=== PATIENT | male | born 1975 | race Caucasian/White ===

== ENCOUNTER 2017-06-26 10:01 | Emergency (ER) | payer OTHER ==
[2017-06-26] MEDS ORDERED: Ondansetron INJ* 2 MG/ML VIAL IV ONE (10:48)
[2017-06-26] MEDS ORDERED: NS 0.9% 1000 ML* 1,000 ML IV ONE (10:48)
[2017-06-26 11:34] LABS: Hematocrit 41 % (42-52); Hemoglobin 13.8 g/dl (14.0-18.0); Mean Corpuscular HGB Conc 34 g/dl (31-36); Mean Corpuscular Hemoglobin 31 pg (27-31); Mean Corpuscular Volume 91 fL (80-94); Mean Platelet Volume 7 um3 (7.4-10.4); Red Blood Count 4.45 10^6/ul (4.0-5.4); Red Cell Distribution Width 12 % (10.5-15); White Blood Count 9.2 10^3/ul (3.5-10.8)
[2017-06-26 11:36] LABS: Urine Bilirubin Negative (Negative); Urine Glucose Negative (Negative); Urine Nitrite Negative (Negative)
--- NOTE | 2017-06-26 11:41 | RAD ---
Indication: Scrotal pain. Real-time sonography of the scrotum was performed. The right testis measures 5.5 x 2.8 x 3.1 cm. No intratesticular masses are noted. Increased flow is noted in the right testis. Epididymis measures 10 x 11 mm. No hydrocele is noted. The left testis measures 4.8 x 2.8 x 3.0 cm. No intratesticular masses are noted. Hypervascular left testes is noted. The epididymis measures 12 x 18 mm. Small left hydrocele is noted. IMPRESSION: Heterogeneous testicles bilaterally. Increased flow in both testis consistent with bilateral orchitis and epididymitis.
[2017-06-26 11:50] LABS: ALT 13 U/L (7-52); AST 20 U/L (13-39); Albumin 4.4 g/dL (3.2-5.2); Alkaline Phosphatase 52 U/L (34-104); Anion Gap 4 mmol/L (2-11); BUN/Creatinine Ratio 11.2 (8-20); Blood Urea Nitrogen 12 mg/dL (6-24); CO2 Carbon Dioxide 30 mmol/L (22-32); Calcium 9.6 mg/dL (8.6-10.3); Chloride 99 mmol/L (101-111); Creatine Kinase 93 U/L (10-223); EGFR African American 97.9 (>60); EGFR Non-African American 76.2 (>60); Globulin 2.9 g/dL (2-4); Glucose 85 mg/dL (70-100); Lipase < 10 U/L (11.0-82.0); Potassium 3.9 mmol/L (3.5-5.0); Sodium 133 mmol/L (133-145); Total Protein 7.3 g/dL (6.4-8.9)
--- NOTE | 2017-06-26 12:21 | RAD ---
Indication: Fever and cough. 2 views of the chest are reviewed and compared to previous exam dated August 26, 2016. No mediastinal shift is noted. Heart is of normal size and configuration. Previous identified air space disease is no longer present. Lung mason are clear. IMPRESSION: No active cardiopulmonary disease is noted.
--- NOTE | 2017-06-26 12:51 | ED ---
HPI Febrile Illness - HPI Summary HPI Summary: Patient is an otherwise healthy 42yo M with a CC of left testicular pain, fevers , nausea and fatigue x 3 days. Denies urinary symptoms. He notes to 3 days ago starting with feelings of malaise, when he noticed his left testicle was swollen and red and tender to touch and radiates into the ipsilarteral side into the LLQ with mild nausea. This pain has been constant, aching, 5/10 and worse with movement/walking. Temp at home x 3 days has been fluctuating between 99-101. He notes to some sweats, but denies chills. Denies other abdominal pain, vomiting, constipation or diarrhea. Denies STI's or chance of such as he is in a monogamous relationship. Denies any urinary symptoms including obstructive symptoms, back pain or discoloration of urine. Denies chest pain, SOB, or neck pain. He states he has tenderness "all over" and his joints ache. He denies any recent tick bites or rashes. He is taking PO well. He denies medications and is allergic to penicillin. - History of Current Complaint Chief Complaint: EDGeneral Time Seen by Provider: 06/26/17 10:29 Hx Obtained From: Patient Onset/Duration: Started Days Ago Timing: Constant Temperature: 100.3 F Initial Severity: Moderate Current Severity: Moderate Pain Intensity: 6 Pain Scale Used: 0-10 Numeric Aggravating Factors: Nothing Alleviating Factors: Nothing Associated Signs and Symptoms: Diaphoresis, Joint Pain, Myalgia, Nausea - Risk Factors Pseudomonas Risk Factors: Negative Serious Bacterial Infection Risk Factors: Negative - Additional Pertinent History Primary Care Physician: [id number] - Allergy/Home Medications Allergies/Adverse Reactions: Allergies Allergy/AdvReac Type Severity Reaction Status Date / Time Penicillin G Allergy Itching Verified 06/26/17 10:26 PMH/Surg Hx/FS Hx/Imm Hx Previously Healthy: Yes Endocrine/Hematology History: Denies: Hx Diabetes, Hx Thyroid Disease Cardiovascular History: Denies: Hx Congestive Heart Failure, Hx Hypertension, Hx Pacemaker/ICD Respiratory History: Reports: Hx Asthma - A CHILD Denies: Hx Chronic Obstructive Pulmonary Disease (COPD) GI History: Denies: Hx Ulcer History: Denies: Hx Renal Disease Sensory History: Denies: Hx Hearing Aid Psychiatric History: Denies: Hx Panic Disorder - Immunization History Date of Tetanus Vaccine: PT STATES UNSURE Date of Influenza Vaccine: NONE Hx Pertussis Vaccination: No Immunizations Up to Date: Unable to Obtain/Confirm Infectious Disease History: No Infectious Disease History: Denies: Hx Hepatitis, Hx Human Immunodeficiency Virus (HIV), Traveled Outside the [place] in Last 30 Days - Family History Known Family History: Positive: Diabetes - Social History Occupation: Employed Full-time Lives: With Family Alcohol Use: Rare Hx Substance Use: No Substance Use Type: Reports: None, Other Substance Use Comment - Amount & Last Used: chewing tobacco Hx Tobacco Use: No Smoking Status (MU): Never Smoked Tobacco Review of Systems - ROS Summary Review of Systems Summary: Constitutional: Febrile x 3 days at 100.0. HEENT: Head: The patient denies headaches or dizziness. Eyes: The patient denies diplopia, blurry vision, eye pain, eye discharge, photophobia. Throat: The patient denies sore throats or hoarseness. Cardiovascular: The patient denies chest pain, palpitations, syncope, night cramps, or orthostasis. Respiratory: The patient denies cough, sputum production, hemoptysis, dyspnea, wheezing. Gastrointestinal: The patient denies odynophagia, dysphagia, hematemesis, melenemesis. + LLQ pain, nausea or vomiting. Denies constipation or diarrhea. Genitourinary: Patient denies dysuria, hematuria, or pyuria. Patient denies back pain. Left scrotal tenderness, erythema. Endocrine: The patient denies polydipsia, polyuria, or polyphagia. Muscles: The patient denies myalgia, strain or weakness. Joints: The patient endorses diffuse arthralgia and myalgias x 3 days. Neurologic: The patient denies headache, loss of consciousness, or seizure. Dermatologic: The patient denies hyperpigmentation, rash, or photosensitivity Constitutional: Negative Positive: Fever, Skin Diaphoresis. Negative: Chills, Fatigue ENT: Negative Negative: Epistaxis, Dental Pain, Sore Throat Respiratory: Negative Negative: Shortness Of Breath, Cough Positive: Abdominal Pain - llq pain radiating from left testicle, Nausea. Negative: Vomiting, Diarrhea Positive: no symptoms reported, see HPI. Negative: burning, dysuria, discharge , frequency, flank pain, hematuria, incontinence, pain Positive: Arthralgia, Myalgia - diffuse myalgias and joint pain Positive: Other Positive: Headache, Weakness, Paresthesia All Other Systems Reviewed And Are Negative: Yes Physical Exam - Summary Physical Exam Summary: Appearance: WDW, comfortable, pleasant, alert Skin: Soft dry skin, no lesions. Nailbeds pink with no cyanosis or clubbing. No petechia noted. Eyes: CJ, EOMI, Conjunctiva pink with no redness or exudates. Mouth: Dentition without lesions. Moist mucosa Neck: Full range of motion. Palpable thyroid. Trachea at midline. No lymphadenopathy. Pulm: Chest symmetrical expansion. No deformities on posterior chest wall. Lungs clear to auscultation and percussion, without adventitious sounds. CV: No JVD. No deformities on anterior chest wall. Heart soundsRRR, Normal S1 and single S2. No S3, S4, rubs, or murmurs. Carotids 2+ bilaterally without bruits. . : testicular pain with tenderness and swelling on palpation of the epididymis ; Cremasteric reflex is positive Musculoskeletal: Flexion and extension of neck limited d/t pain. Brudzynski and Kernig sign negative. No deformities noted. Pulses full and equal. Neuro: Motor strength is 5/5 in upper and lower extremities bilaterally. A&OX3 Psych: Logical, coherent Triage Information Reviewed: Yes Vital Signs On Initial Exam: Initial Vitals Temp Pulse Resp BP Pulse Ox 99.0 F 77 16 131/81 100 06/26/17 10:10 06/26/17 10:10 06/26/17 10:10 06/26/17 10:10 06/26/17 10:10 Vital Signs Reviewed: Yes Appearance: Positive: Well-Appearing, Well-Nourished Skin: Positive: Warm, Skin Color Reflects Adequate Perfusion Head/Face: Positive: Normal Head/Face Inspection Eyes: Positive: EOMI, CJ, Conjunctiva Clear Neck: Positive: Supple, No Lymphadenopathy Respiratory/Lung Sounds: Positive: Clear to Auscultation, Breath Sounds Present Cardiovascular: Positive: Normal, Pulses are Symmetrical in both Upper and Lower Extremities Abdomen Description: Positive: Nontender, No Organomegaly, Soft. Negative: CVA Tenderness (R), CVA Tenderness (L), Distended, Guarding, McBurney's Point Tenderness, Splenomegaly Male Genital Exam: Positive: epididymal tenderness, scrotum tenderness (L), testicular tenderness (L). Negative: hernia mass, high riding prostate, inguinal tenderness, scrotum tenderness (R), testicular tenderness (R) Neurological: Positive: Speech Normal Psychiatric: Positive: Normal AVPU Assessment: Alert - Emy Coma Scale Best Eye Response: 4 - Spontaneous Best Motor Response: 6 - Obeys Commands Best Verbal Response: 5 - Oriented Coma Scale Total: 15 Diagnostics - Vital Signs Vital Signs Temp Pulse Resp BP Pulse Ox 06/26/17 12:00 70 117/75 99 06/26/17 11:57 117/78 06/26/17 11:03 77 143/68 97 06/26/17 11:00 74 97 06/26/17 10:30 81 122/79 97 06/26/17 10:23 80 98 06/26/17 10:21 102/62 06/26/17 10:10 99.0 F 77 16 131/81 100 - Laboratory Lab Results: Lab Results 06/26/17 06/26/17 06/26/17 Range/Units 11:15 11:15 11:15 WBC 9.2 (3.5-10.8) 10^3/ul RBC 4.45 (4.0-5.4) 10^6/ul Hgb 13.8 L (14.0-18.0) g/dl Hct 41 L (42-52) % MCV 91 (80-94) fL MCH 31 (27-31) pg MCHC 34 (31-36) g/dl RDW 12 (10.5-15) % Plt Count 310 (150-450) 10^3/ul MPV 7 L (7.4-10.4) um3 Neut % (Auto) 77.2 (38-83) % Lymph % (Auto) 12.4 L (25-47) % Oter[place] % (Auto) 9.7 H (1-9) % Eos % (Auto) 0.3 (0-6) % Baso % (Auto) 0.4 (0-2) % Absolute Neuts (auto) 7.1 (1.5-7.7) 10^3/ul Absolute Lymphs (auto) 1.1 (1.0-4.8) 10^3/ul Absolute Monos (auto) 0.9 H (0-0.8) 10^3/ul Absolute Eos (auto) 0 (0-0.6) 10^3/ul Absolute Basos (auto) 0 (0-0.2) 10^3/ul Absolute Nucleated RBC 0.01 10^3/ul Nucleated RBC % 0.1 Sodium 133 (133-145) mmol/L Potassium 3.9 (3.5-5.0) mmol/L Chloride 99 L (101-111) mmol/L Carbon Dioxide 30 (22-32) mmol/L Anion Gap 4 (2-11) mmol/L BUN 12 (6-24) mg/dL Creatinine 1.07 (0.67-1.17) mg/dL Est GFR ( Amer) 97.9 (>60) Est GFR (Non-Af Amer) 76.2 (>60) BUN/Creatinine Ratio 11.2 (8-20) Glucose 85 (70-100) mg/dL Lactic Acid 0.7 (0.5-2.0) mmol/L Calcium 9.6 (8.6-10.3) mg/dL Total Bilirubin 0.80 (0.2-1.0) mg/dL AST 20 (13-39) U/L ALT 13 (7-52) U/L Alkaline Phosphatase 52 (34-104) U/L Total Creatine Kinase 93 (10-223) U/L C-Reactive Protein 42.20 H (< 5.00) mg/L Total Protein 7.3 (6.4-8.9) g/dL Albumin 4.4 (3.2-5.2) g/dL Globulin 2.9 (2-4) g/dL Albumin/Globulin Ratio 1.5 (1-3) Lipase < 10 L (11.0-82.0) U/L Urine Color Urine Appearance Urine pH (5-9) Ur Specific [place] (1.010-1.030) Urine Protein (Negative) Urine Ketones (Negative) Urine Blood (Negative) Urine Nitrate (Negative) Urine Bilirubin (Negative) Urine Urobilinogen (Negative) Ur Leukocyte Esterase (Negative) Urine Glucose (Negative) 06/26/17 Range/Units 11:15 WBC (3.5-10.8) 10^3/ul RBC (4.0-5.4) 10^6/ul Hgb (14.0-18.0) g/dl Hct (42-52) % MCV (80-94) fL MCH (27-31) pg MCHC (31-36) g/dl RDW (10.5-15) % Plt Count (150-450) 10^3/ul MPV (7.4-10.4) um3 Neut % (Auto) (38-83) % Lymph % (Auto) (25-47) % [place] % (Auto) (1-9) % Eos % (Auto) (0-6) % Baso % (Auto) (0-2) % Absolute Neuts (auto) (1.5-7.7) 10^3/ul Absolute Lymphs (auto) (1.0-4.8) 10^3/ul Absolute Monos (auto) (0-0.8) 10^3/ul Absolute Eos (auto) (0-0.6) 10^3/ul Absolute Basos (auto) (0-0.2) 10^3/ul Absolute Nucleated RBC 10^3/ul Nucleated RBC % Sodium (133-145) mmol/L Potassium (3.5-5.0) mmol/L Chloride (101-111) mmol/L Carbon Dioxide (22-32) mmol/L Anion Gap (2-11) mmol/L BUN (6-24) mg/dL Creatinine (0.67-1.17) mg/dL Est GFR ( Amer) (>60) Est GFR (Non-Af Amer) (>60) BUN/Creatinine Ratio (8-20) Glucose (70-100) mg/dL Lactic Acid (0.5-2.0) mmol/L Calcium (8.6-10.3) mg/dL Total Bilirubin (0.2-1.0) mg/dL AST (13-39) U/L ALT (7-52) U/L Alkaline Phosphatase (34-104) U/L Total Creatine Kinase (10-223) U/L C-Reactive Protein (< 5.00) mg/L Total Protein (6.4-8.9) g/dL Albumin (3.2-5.2) g/dL Globulin (2-4) g/dL Albumin/Globulin Ratio (1-3) Lipase (11.0-82.0) U/L Urine Color Yellow Urine Appearance Clear Urine pH 6.0 (5-9) Ur Specific [place] 1.010 (1.010-1.030) Urine Protein Negative (Negative) Urine Ketones Negative (Negative) Urine Blood Negative (Negative) Urine Nitrate Negative (Negative) Urine Bilirubin Negative (Negative) Urine Urobilinogen Negative (Negative) Ur Leukocyte Esterase Negative (Negative) Urine Glucose Negative (Negative) Result Diagrams: 06/26/17 11:15 06/26/17 11:15 Lab Statement: Any lab studies that have been ordered have been reviewed, and results considered in the medical decision making process. Course/Dx - Course Course Of Treatment: Patient is evaluated for fever with left scrotal tenderness. On physical exam, there is localized testicular pain with tenderness and swelling on palpation of the epididymis with worsening pain which is located more posteriorly on the testis. Due to swelling of the testicle in addition to exquisite tenderness to the posterior testis, he likely has epididymo-orchitis. Positive scrotal wall erythema with mild hydrocele. Cremasteric reflex is positive, no evidence of high-riding testis or cloud clapper deformity and no profound testicular swelling suggesting testicular torsion. No evidence of Shannan's gangrene and testicle is not discolored. No spermatocele or cyst identified. No other abnormalities including masses identified. No transillumination. No hx of cryptochordism or STI's. Labs obtained and WNL except for slightly elevated CRP. Zofran given in ED and patients nausea improved. Temp upon discharge 99.0. US obtained which shows: IMPRESSION: Heterogeneous testicles bilaterally. Increased flow in both testis consistent with bilateral orchitis and epididymitis. Patient made aware of results. Per UTD, levofloxacin 500mg x 10 days is recommended in males over 35y without significant risk of sexually transmitted infections. GC/chlamydia sent and will call with results. Patient is to take Tylenol for fevers. Chest xray negative. Medications were reveiwed with patient. Encouarged to follow up with PCP or return to ED for worsening symptoms. Return precautions given. Patient understands and agrees with plan. Ok for discharge. - Febrile Illness Differential Diagnoses: Bacteremia, Fever of Unknown Origin, Other: - epidydimitis, orchitis, STI, other febrile illness - Diagnoses Provider Diagnoses: Acute epididymitis Discharge - Discharge Plan Condition: Stable Disposition: HOME Prescriptions: Levofloxacin TAB* [Levaquin TAB*] 500 mg PO DAILY #10 tab Patient Education Materials: Epididymo-Orchitis (ED) Referrals: Marcus Addison MD [Primary Care Provider] - Additional Instructions: Follow up with PCP next week If you develop worsening symptoms, return to the ED immediately You may try ice to the testicle to alleviate any pain Tylenol and ibuprofen for swelling and inflammation and fevers Use both intermittently Rest Fluids Scrotal support Take the antibiotic as prescribed x 10 days
[2017-06-26 13:18] VITALS: BP 118/72
== END 2017-06-26 13:25 | disposition home or self-care (01) ==
LOC: ED 10:01
DX: N45.1 Epididymitis (principal); Z88.0 Allergy status to penicillin; F17.220 Nicotine dependence, chewing tobacco, uncomplicated
CPT/HCPCS: 36415; 71020; 76870; 80053; 81003; 82550; 83605; 83690; 85025; 86140; 86618; 87040; 87491; 87591; 96360; 96374; 99282; J2405

== ENCOUNTER 2019-07-23 22:18 | Emergency (ER) | payer OTHER ==
[2019-07-23] MEDS ORDERED: NS 0.9% 1000 ML** 1,000 ML IV ONE (22:44)
[2019-07-23] MEDS ORDERED: Morphine 4 MG/ML VIAL (1 ml) 4 MG/ML VIAL IV ONE (22:44)
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
[2019-07-23 23:02] LABS: ABS Eosinophils 0.1 10^3/ul (0-0.6); ABS Lymphocytes 2.3 10^3/ul (1.0-4.8); ABS Monocytes 0.6 10^3/ul (0-0.8); ABS Neutrophils 3.1 10^3/ul (1.5-7.7); Eosinophil % 2.2 %; Hematocrit 38 % (42-52); Hemoglobin 13.4 g/dL (14.0-18.0); Lymphocyte % 37.2 %; Mean Corpuscular HGB Conc 35 g/dL (31-36); Mean Corpuscular Hemoglobin 32 pg (27-31); Mean Corpuscular Volume 90 fL (80-94); Mean Platelet Volume 6.5 fL (7.4-10.4); Platelet Count 315 10^3/uL (150-450); Red Blood Count 4.25 10^6 /uL (4.18-5.48); Red Cell Distribution Width 13 % (10-15); White Blood Count 6.1 10^3/uL (3.5-10.8)
[2019-07-23] MEDS ORDERED: Ondansetron INJ* 2 MG/ML VIAL IV ONE (23:10)
[2019-07-23 23:16] LABS: BUN/Creatinine Ratio 15.6 (8-20); Calcium 9.1 mg/dL (8.6-10.3); EGFR African American 133.4 (>60); EGFR Non-African American 110.3 (>60); Potassium 3.7 mmol/L (3.5-5.0)
[2019-07-24 01:40] VITALS: BP 115/71
== END 2019-07-24 01:39 | disposition home or self-care (01) ==
LOC: ED 22:18
DX: T24.221A Burn of second degree of right knee, initial encounter (principal); T23.231A Burn of second degree of multiple right fingers (nail), not including thumb, initial encounter; T23.271A Burn of second degree of right wrist, initial encounter; T23.272A Burn of second degree of left wrist, initial encounter; T25.211A Burn of second degree of right ankle, initial encounter; T22.221A Burn of second degree of right elbow, initial encounter; X03.3XXA Fall due to controlled fire, not in building or structure, initial encounter; Y92.9 Unspecified place or not applicable; J70.5 Respiratory conditions due to smoke inhalation; Z88.0 Allergy status to penicillin
CPT/HCPCS: 36415; 71046; 80048; 85025; 96361; 96374; 96375; 99283; J2270; J2405